=== PATIENT | male | born 1990 | race African-American/Black ===

== ENCOUNTER 2017-01-15 18:42 | Emergency (ER) | payer MEDICAID ==
[~2017-01-15] VITALS: Ht 185.4 cm; Wt 110.0 kg
[~2017-01-15 18:42] MED LIST: LISI10TA PO
[2017-01-15 18:43] VITALS: BP 245/153; PULSE 89; RESP 16; TEMP 99.5; O2SAT 96
[2017-01-15] MEDS ORDERED: METO50TA PO ×2 (18:57→21:36)
[2017-01-15] MEDS ORDERED: AMLO2.5T PO ×2 (18:57→21:36)
[2017-01-15 19:30] VITALS: RESP 18
[2017-01-15] MEDS ORDERED: SODIUM CHLORIDE 0.9% FLUSH 10 ML FLUSH IVF PRN (19:30)
--- NOTE | 2017-01-15 19:44 | PD ---
HPI Chief Complaint: Headache Time Seen by Provider: 19:20 Travel History International Travel<30 days: No Contact w/Intl Traveler<30days: No Traveled to known affect area: No History of Present Illness HPI Patient is a 26-year-old male presenting to emergency department evaluation of a headache. Patient states he's had every day for the last week. Headache is relieved by BC powder quickly returns. He reports pain is frontal and pressure- like, he also reports pain in the base of his skull. He states the pain has had is an 8 out of 10. He states that his vision is blurry cloudy at times, he denies any photophobia, nausea, vomiting, chest pain shortness of breath. Patient has a history of hypertension, he is noncompliant with medications. PFSH Past Medical History Diminished Hearing: No Hypertension: Yes Tetanus Vaccination: > 5 Years Influenza Vaccination: No Past Surgical History Surgical History: No Previous Surgery Social History Alcohol Use: Yes (3 DRINKS PER MONTH) Tobacco Use: No Substance Use: No Allergies-Medications (Allergen,Severity, Reaction): Coded Allergies: penicillin G (Unverified Allergy, Mild, 01/15/17) Reported Meds & Prescriptions Reported Meds & Active Scripts Active Reported Amlodipine (Amlodipine Besylate) 2.5 Mg Tab 2.5 Mg PO DAILY Metoprolol Tartrate 50 Mg Tab 50 Mg PO BID Review of Systems Except as stated in HPI: all other systems reviewed are Neg General / Constitutional: No: Fever, Chills Eyes: Positive: Blurred Vision, Visual changes, No: Photophobia HENT: Positive: Headaches, No: Neck Pain Cardiovascular: No: Chest Pain or Discomfort, Dyspnea on exertion Respiratory: No: Shortness of Breath Gastrointestinal: No: Nausea, Vomiting, Abdominal Pain Neurologic: No: Focal Abnormalities, Change in Mentation Physical Exam Narrative GENERAL: Overweight, well-developed, alert male. Resting comfortably in no acute distress. SKIN: Warm and dry. HEAD: Atraumatic. Normocephalic. EYES: Pupils equal and round. No scleral icterus. No injection or drainage. ENT: No nasal bleeding or discharge. Mucous membranes pink and moist. NECK: Trachea midline. No JVD. CARDIOVASCULAR: Regular rate and rhythm. RESPIRATORY: No accessory muscle use. Clear to auscultation. Breath sounds equal bilaterally. GASTROINTESTINAL: Abdomen soft, non-tender, nondistended. Hepatic and splenic margins not palpable. MUSCULOSKELETAL: Extremities without clubbing, cyanosis, or edema. No obvious deformities. NEUROLOGICAL: Awake and alert. No obvious cranial nerve deficits. Motor grossly within normal limits. Five out of 5 muscle strength in the arms and legs. Normal speech. PSYCHIATRIC: Appropriate mood and affect; insight and judgment normal. Data Data Last Documented VS Vital Signs Date Time Temp Pulse Resp B/P (MAP) Pulse Ox O2 Delivery O2 Flow Rate FiO2 01/15/17 21:15 62 16 183/105 (131) 98 Room Air 01/15/17 18:43 99.5 Orders Orders Electrocardiogram (01/15/17 19:27) Complete Blood Count With Diff (01/15/17 19:) Comprehensive Metabolic Panel (01/15/17 19:) Magnesium (Mg) (01/15/17 19:27) Ckmb (Isoenzyme) Profile (01/15/17 19:27) Troponin I (01/15/17 19:27) Chest, Single Ap (01/15/17 19:27) Ct Brain W/O Iv Contrast(Rout) (01/15/17 19:27) Ecg Monitoring (01/15/17 19:27) Iv Access Insert/Monitor (01/15/17 19:27) Oximetry (01/15/17 19:27) Sodium Chloride 0.9% Flush (Ns Flush) (01/15/17 19:30) Metoprolol Tartrate Inj (Lopressor Inj) (01/15/17 19:30) CKMB (01/15/17 19:30) CKMB% (01/15/17 19:30) Ketorolac Inj (Toradol Inj) (01/15/17 20:45) Prochlorperazine Inj (Compazine Inj) (01/15/17 20:45) Diphenhydramine Inj (Benadryl Inj) (01/15/17 20:45) Labs Laboratory Tests Test 01/15/17 19:30 White Blood Count 9.7 TH/MM3 Red Blood Count 4.78 MIL/MM3 Hemoglobin 14.1 GM/DL Hematocrit 40.2 % Mean Corpuscular Volume 83.9 FL Mean Corpuscular Hemoglobin 29.4 PG Mean Corpuscular Hemoglobin Concent 35.0 % Red Cell Distribution Width 12.4 % Platelet Count 213 TH/MM3 Mean Platelet Volume 9.1 FL Neutrophils (%) (Auto) 71.2 % Lymphocytes (%) (Auto) 16.6 % Monocytes (%) (Auto) 9.4 % Eosinophils (%) (Auto) 2.5 % Basophils (%) (Auto) 0.3 % Neutrophils # (Auto) 6.9 TH/MM3 Lymphocytes # (Auto) 1.6 TH/MM3 Monocytes # (Auto) 0.9 TH/MM3 Eosinophils # (Auto) 0.2 TH/MM3 Basophils # (Auto) 0.0 TH/MM3 CBC Comment DIFF FINAL Differential Comment Blood Urea Nitrogen 9 MG/DL Creatinine 1.14 MG/DL Random Glucose 99 MG/DL Total Protein 7.1 GM/DL Albumin 3.6 GM/DL Calcium Level 8.2 MG/DL Magnesium Level 2.0 MG/DL Alkaline Phosphatase 133 U/L Aspartate Amino Transf (AST/SGOT) 27 U/L Alanine Aminotransferase (ALT/SGPT) 28 U/L Total Bilirubin 0.3 MG/DL Sodium Level 141 MEQ/L Potassium Level 3.5 MEQ/L Chloride Level 105 MEQ/L Carbon Dioxide Level 28.6 MEQ/L Anion Gap 7 MEQ/L Estimat Glomerular Filtration Rate 93 ML/MIN Total Creatine Kinase 176 U/L Creatine Kinase MB 1.1 NG/ML Troponin I LESS THAN 0.02 NG/ML MDM Medical Decision Making Medical Screen Exam Complete: Yes Emergency Medical Condition: Yes Interpretation(s) Vital Signs Date Time Temp Pulse Resp B/P (MAP) Pulse Ox O2 Delivery O2 Flow Rate FiO2 01/15/17 19:30 18 Room Air 01/15/17 19:30 Room Air 01/15/17 18:43 99.5 89 16 245/153 (183) 96 Differential Diagnosis Hypertensive urgency versus intercranial hemorrhage versus sinusitis versus tendon headache versus migraine versus other Narrative Course Patient is a 26 male presented to emergency prompt evaluation of a headache. Headache is ongoing for 1 week, he is accompanied nasal congestion. The headache is frontal in nature feels pressure-like. Additionally patient has been off of his blood pressure medications he stated that they did not work so he stopped taking them. He is significantly hypertensive on arrival. He has no complaints of chest pain or shortness of breath. Labs and imaging ordered and pending. CBC with no acute findings Chemistry with no acute findings Cardiac enzymes are negative 1 set Chest x-ray which is read by the radiologist shows no acute disease. CT scan of brain shows no acute intracranial disease. Minimal mucosal thickening within the right maxillary sinus. Was given Toradol, Compazine, and Benadryl for his headache. Toprol IV 3, blood pressure has continued to trend down with the latest reading at 167/91. Patient was reassessed and he reported that his headache had resolved. Patient was encouraged to maintain compliance of blood pressure medications to avoid rebound hypertension. Patient was educated on the risks associated with uncontrolled hypertension. Patient verbalized understanding of instructions. He was encouraged to follow-up with his primary provider in the next 2-3 days. He verbalized understanding of instructions. Patient is stable for discharge. Diagnosis Primary Impression: Headache Qualified Codes: R51 - Headache Additional Impressions: Hypertension Qualified Codes: I10 - Essential (primary) hypertension Sinusitis Qualified Codes: J01.00 - Acute maxillary sinusitis, unspecified Referrals: Primary Care Physician 3 days Patient Instructions: Acute Headache (ED), General Instructions, Hypertension ( ED), Sinusitis (GEN) Additional Instructions: Follow-up with your primary doctor Take medications as directed Do not skip doses of blood pressure medicine to avoid rebound hypertension Return to emergency department for any new or worsening symptoms Med/Other Pt SpecificInfo: Prescription(s) given Scripts Doxycycline Hyclate (Doxycycline Hyclate) 100 Mg Cap 100 MG PO BID for Infection, #20 CAP 0 Refills Prov: Angeliat Lambert 01/15/17 Lisinopril-Hctz (Lisinopril-Hctz) 20-25 Mg Tab 1 TAB PO DAILY for Blood Pressure Management, #30 TAB 0 Refills Prov: Angelita Lambert 01/15/17 Amlodipine (Amlodipine) 2.5 Mg Tab 2.5 MG PO DAILY for Blood Pressure Management, #30 TAB 0 Refills Prov: Angelita Lambert 01/15/17 Metoprolol Tartrate (Metoprolol Tartrate) 50 Mg Tab 50 MG PO BID, #60 TAB 0 Refills Prov: Angelita Lambert 01/15/17 Disposition: 01 DISCHARGE HOME Condition: Stable Angelita Lambert Jan 15, 2017 19:44
[2017-01-15 19:49] LABS: AUTOMATED NEUTROPHIL # 6.9 TH/MM3 (1.8-7.7); BASOPHIL % 0.3 % (0.0-2.0); EOSINOPHIL # 0.2 TH/MM3 (0-0.4); EOSINOPHIL % 2.5 % (0.0-4.0); HEMATOCRIT 40.2 % (39.0-51.0); HEMO FLAGS DIFF FINAL; LYMPH % 16.6 % (9.0-44.0); LYMPHOCYTE # 1.6 TH/MM3 (1.0-4.8); MEAN CELL VOLUME 83.9 FL (80.0-100.0); MEAN CORPUSCULAR HEMOGLOBIN 29.4 PG (27.0-34.0); MONO % 9.4 % (0.0-8.0); NEUT % 71.2 % (16.0-70.0); PLATELET COUNT 213 TH/MM3 (150-450); RED BLOOD COUNT 4.78 MIL/MM3 (4.50-5.90); RED CELL DISTRIBUTION WIDTH 12.4 % (11.6-17.2); WHITE BLOOD COUNT 9.7 TH/MM3 (4.0-11.0)
[2017-01-15] MEDS: METOPROLOL TARTRATE 5 MG/5 ML VIAL IVS SCH ×3 (20:11→21:14)
[2017-01-15 20:16] LABS: ALT (GPT) 28 U/L (12-78)
[2017-01-15 20:20] LABS: ALKALINE PHOSPHATASE 133 U/L (45-117); CREATINE KINASE 176 U/L (39-308); TOTAL BILIRUBIN ADULT 0.3 MG/DL (0.2-1.0)
[2017-01-15 20:25] LABS: ANION GAP 7 MEQ/L (5-15); AST (GOT) 27 U/L (15-37); BICARBONATE 28.6 MEQ/L (21.0-32.0); BLOOD UREA NITROGEN 9 MG/DL (7-18); CHLORIDE 105 MEQ/L (98-107); GLOMERULAR FILTRATION RATE 93 ML/MIN (>89); POTASSIUM 3.5 MEQ/L (3.5-5.1); SODIUM (NA) 141 MEQ/L (136-145)
--- NOTE | 2017-01-15 20:31 | RADRPT ---
EXAM DATE/TIME: 01/15/2017 20:17 [facility] COMPARISON: CT BRAIN W/O CONTRAST, July 15, 2013, 16:01. INDICATIONS : Cephalgia. RADIATION DOSE: 37.49 CTDIvol (mGy) MEDICAL HISTORY : Hypertension. SURGICAL HISTORY : None. ENCOUNTER: Initial ACUITY: 1 day PAIN SCALE: 6/10 LOCATION: Bilateral cranial TECHNIQUE: Multiple contiguous axial images were obtained of the head. Using automated exposure control and adj ustment of the mA and/or kV according to patient size, radiation dose was kept as low as reasonably a chievable to obtain optimal diagnostic quality images. DICOM format image data is available electro nically for review and comparison. FINDINGS: CEREBRUM: The ventricles are normal for age. No evidence of midline shift, mass lesion, hemorrhage or acute in farction. No extra-axial fluid collections are seen. POSTERIOR FOSSA: The cerebellum and brainstem are intact. The 4th ventricle is midline. The cerebellopontine angle i s unremarkable. EXTRACRANIAL: The visualized portion of the orbits is intact. Minimal mucosal thickening is noted within the right maxillary sinus. SKULL: The calvaria is intact. No evidence of skull fracture. CONCLUSION: No acute intracranial disease. Minimal mucosal thickening within the right maxillary sinus. Sohan Cueva MD on January 15, 2017 at 20:27 Board Certified Radiologist. This report was verified electronically.
[2017-01-15 20:32] LABS: CKMB 1.1 NG/ML (0.5-3.6)
[2017-01-15 20:42] VITALS: BP 211/113; PULSE 61; RESP 18; O2SAT 99
[2017-01-15] MEDS ORDERED: diphenhydrAMINE HCL 50 MG/ML VIAL IVP ONE (20:45)
[2017-01-15] MEDS ORDERED: PROCHLORPERAZINE INJ 10 MG/2 ML VIAL IVP ONE (20:45)
[2017-01-15] MEDS ORDERED: KETOROLAC TROMETHAMINE 30 MG/ML (IVP) VIAL IVP ONE (20:45)
--- NOTE | 2017-01-15 20:48 | RADRPT ---
EXAM DATE/TIME: 01/15/2017 19:58 [facility] COMPARISON: No previous studies available for comparison. INDICATIONS : Cough. MEDICAL HISTORY : Hypertension. SURGICAL HISTORY : None. ENCOUNTER: Initial ACUITY: 3 days PAIN SCORE: 0/10 LOCATION: Bilateral chest FINDINGS: A single view of the chest demonstrates the lungs to be symmetrically aerated without evidence of mas s, infiltrate or effusion. The cardiomediastinal contours are unremarkable. Osseous structures are intact. CONCLUSION: No acute disease. Sohan Cueva MD on January 15, 2017 at 20:46 Board Certified Radiologist. This report was verified electronically.
[2017-01-15 21:15] VITALS: BP 183/105; PULSE 62; RESP 16; O2SAT 98
[2017-01-15] MEDS ORDERED: LISI20TA3 PO (21:36)
[2017-01-15] MEDS ORDERED: DOXY100C PO (21:36)
[2017-01-15 21:45] VITALS: BP 170/90; PULSE 65; RESP 16; O2SAT 98
--- NOTE | 2017-01-16 14:24 | EKG ---
Date Performed: 01/15/2017 Time Performed: 20:40:33 PTAGE: 26 years EKG: SINUS BRADYCARDIA POSSIBLE RIGHT VENTRICULAR CONDUCTION DELAY NONSPECIFIC ST & T-WAVE ABNOR MALITY BORDERLINE ECG NO PREVIOUS TRACING DOCTOR: Nori Tubbs Interpretating Date/Time 01/16/2017 14:22:49
== END 2017-01-16 02:04 | disposition home or self-care (01) ==
LOC: NEPE 18:42
DX: R51 Headache (principal); I10 Essential (primary) hypertension; J32.9 Chronic sinusitis, unspecified; R00.1 Bradycardia, unspecified; R94.31 Abnormal electrocardiogram [ECG] [EKG]; Z91.14 Patient's other noncompliance with medication regimen; Z79.899 Other long term (current) drug therapy
CPT/HCPCS: 70450; 71010; 80053; 82550; 82552; 83735; 84484; 85025; 93005; 96374; 96375; 99285; J0780; J1200; J1885